=== PATIENT | male | born 1995 | race Caucasian/White ===

== ENCOUNTER 2016-09-26 13:27 | Emergency (ER) | payer MEDICARE, OTHER | END 2016-09-26 15:05 | disposition home or self-care (01) | LOC: ER1 13:27 | DX: R07.89 Other chest pain (principal); J45.909 Unspecified asthma, uncomplicated; I10 Essential (primary) hypertension; Z88.0 Allergy status to penicillin; Z88.2 Allergy status to sulfonamides; Z79.899 Other long term (current) drug therapy | CPT/HCPCS: 71020; 93005; 99285 ==

== ENCOUNTER 2017-01-19 13:36 | Emergency (ER) | payer MEDICARE, OTHER ==
[2017-01-19 14:38] LABS: HEMOGLOBIN 14.8 gm/dl (14.0-17.5); RED BLOOD COUNT 5.12 M/UL (4.20-5.50); WHITE BLOOD COUNT 8.7 K/UL (4.5-11.0)
[2017-01-19 15:00] LABS: BUN/CREATININE RATIO 18 (0-10)
== END 2017-01-19 17:56 | disposition home or self-care (01) ==
LOC: ER1 13:36
PROVIDERS: Family Medicine
DX: I49.8 Other specified cardiac arrhythmias (principal); Z88.0 Allergy status to penicillin; Z88.2 Allergy status to sulfonamides
CPT/HCPCS: 36415; 80053; 82550; 82553; 83874; 84484; 85025; 93005; 96360; 96361; 99285; J7030

== ENCOUNTER 2021-05-09 11:30 | Emergency (ER) | payer OTHER ==
[~2021-05-09 11:30] MED LIST: CORTIZONE-1057 GM TP; ZOFRAN ODT 4 MG4 MG SL
[2021-05-09 12:46] LABS: RED BLOOD COUNT 5.09 M/UL (4.20-5.50)
[2021-05-09 13:07] LABS: BUN/CREATININE RATIO 24 (0-10)
== END 2021-05-09 16:34 | disposition left against medical advice (07) ==
LOC: ER1 11:30
PROVIDERS: Physician Assistant
DX: K62.5 Hemorrhage of anus and rectum (principal); Z88.0 Allergy status to penicillin; Z88.2 Allergy status to sulfonamides; Z88.8 Allergy status to other drugs, medicaments and biological substances
CPT/HCPCS: 80053; 85025; 99283